=== PATIENT | female | born 1985 | race Caucasian/White ===

== ENCOUNTER 2019-03-17 09:24 | Emergency (ER) | payer MEDICAID ==
--- NOTE | 2019-03-17 09:55 | EDM.PDOC ---
ED HPI GENERAL MEDICAL PROBLEM - General Chief Complaint: Flank Pain Stated Complaint: PAIN IN LT SIDE Time Seen by Provider: 03/17/19 09:55 Source of Information: Reports: Patient - History of Present Illness INITIAL COMMENTS - FREE TEXT/NARRATIVE: HISTORY AND PHYSICAL: History of present illness: [Patient with history of left renal stone presents with abrupt onset left flank pain awoke her from sleep at 3 AM rates 5 out of 10 nonradiating no fever nausea vomiting chills sweats No apparent distress no pain behavior Recent menstruation ] Review of systems: As per history of present illness and below otherwise all systems reviewed and negative. Past medical history: As per history of present illness and as reviewed below otherwise noncontributory. Surgical history: As per history of present illness and as reviewed below otherwise noncontributory. Social history: No reported history of drug or alcohol abuse. Family history: As per history of present illness and as reviewed below otherwise noncontributory. Physical exam: HEENT: Atraumatic, normocephalic, pupils reactive, negative for conjunctival pallor or scleral icterus, mucous membranes moist, throat clear, neck supple, nontender, trachea midline. Lungs: Clear to auscultation, breath sounds equal bilaterally, chest nontender. Heart: S1S2, regular, negative for clicks, rubs, or JVD. Abdomen: Soft, nondistended, nontende and right, tender on deep palpation on the left. Negative for masses or hepatosplenomegaly. Negative for costovertebral tenderness. Pelvis: Stable nontender. Genitourinary: Deferred. Rectal: Deferred. Extremities: Atraumatic, negative for cords or calf pain. Neurovascular unremarkable. Neuro: Awake, alert, oriented. Cranial nerves II through XII unremarkable. Cerebellum unremarkable. Motor and sensory unremarkable throughout. Exam nonfocal. Diagnostics: [cBC CMP troponin lipase UA ]DT abdomen pelvis without contrast Therapeutics: [Saline Toradol Zofran Toradol ] Impression: [ left sided abdominal pain ] Definitive disposition and diagnosis as appropriate pending reevaluation and review of above. left flank Pain Score (Numeric/FACES): 9 - Related Data Allergies Allergy/AdvReac Type Severity Reaction Status Date / Time Penicillins Allergy Mild Cannot Verified 03/17/19 09:33 Remember hydrocodone Allergy Rash Verified 03/17/19 09:33 Home Meds: Home Meds . 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: Musculoskeletal History: Reports: None Neurological History: Reports: None Psychiatric History: Reports: None Endocrine/Metabolic History: Reports: None Hematologic History: Reports: None Immunologic History: Reports: None Oncologic (Cancer) History: Reports: None Dermatologic History: Reports: None - Infectious Disease History Infectious Disease History: Reports: C-Difficile - Past Surgical History Head Surgeries/Procedures: Reports: None HEENT Surgical History: Reports: None Cardiovascular Surgical History: Reports: None Respiratory Surgical History: Reports: None GI Surgical History: Reports: None Female Surgical History: Reports: Section Endocrine Surgical History: Reports: None Neurological Surgical History: Reports: None Musculoskeletal Surgical History: Reports: None Oncologic Surgical History: Reports: None Dermatological Surgical History: Reports: None Social & Family History - Family History Family Medical History: Noncontributory - Tobacco Use Smoking Status *Q: Never Smoker Second Hand Smoke Exposure: No - Caffeine Use Caffeine Use: Reports: Coffee, Energy Drinks, Soda - Recreational Drug Use Recreational Drug Use: No ED ROS GENERAL - Review of Systems Review Of Systems: See Below ED EXAM, GENERAL - Physical Exam Exam: See Below Course - Vital Signs Last Recorded V/S: Last Vital Signs Temp 96.1 F 03/17/19 09:31 Pulse 66 03/17/19 09:31 Resp 18 03/17/19 09:31 BP 135/50 L 03/17/19 09:31 Pulse Ox 99 03/17/19 09:31 - Orders/Labs/Meds Labs: Laboratory Tests 03/17/19 03/17/19 03/17/19 Range/Units 09:35 09:35 09:51 WBC 5.20 (4.0-11.0) K/uL RBC 4.40 (4.30-5.90) M/uL Hgb 12.6 (12.0-16.0) g/dL Hct 39.9 (36.0-46.0) % MCV 90.7 (80.0-98.0) fL MCH 28.6 (27.0-32.0) pg MCHC 31.6 (31.0-37.0) g/dL RDW Std Deviation 50.3 (28.0-62.0) fl RDW Coeff of Manuel 15 (11.0-15.0) % Plt Count 213 (150-400) K/uL MPV 11.50 (7.40-12.00) fL Neut % (Auto) 61.3 (48.0-80.0) % Lymph % (Auto) 31.0 (16.0-40.0) % [place] % (Auto) 4.4 (0.0-15.0) % Eos % (Auto) 2.5 (0.0-7.0) % Baso % (Auto) 0.8 (0.0-1.5) % Neut # (Auto) 3.2 (1.4-5.7) K/uL Lymph # (Auto) 1.6 (0.6-2.4) K/uL [place] # (Auto) 0.2 (0.0-0.8) K/uL Eos # (Auto) 0.1 (0.0-0.7) K/uL Baso # (Auto) 0.0 (0.0-0.1) K/uL Nucleated RBC % 0.0 /100WBC Nucleated RBCs # 0 K/uL Sodium (136-145) mmol/L Potassium (3.5-5.1) mmol/L Chloride (98-107) mmol/L Carbon Dioxide (21.0-32.0) mmol/L BUN (7.0-18.0) mg/dL Creatinine (0.6-1.0) mg/dL Est Cr Clr Drug Dosing mL/min Estimated GFR (MDRD) ml/min Glucose (74-106) mg/dL Calcium (8.5-10.1) mg/dL Total Bilirubin (0.2-1.0) mg/dL AST (15-37) IU/L ALT (14-63) IU/L Alkaline Phosphatase (46-116) U/L Troponin I (0.000-0.056) ng/mL Total Protein (6.4-8.2) g/dL Albumin (3.4-5.0) g/dL Globulin (2.6-4.0) g/dL Albumin/Globulin Ratio (0.9-1.6) Lipase (73-393) U/L Urine Color YELLOW Urine Appearance SLT CLOUDY Urine pH 5.5 (5.0-8.0) Ur Specific [place] 1.025 (1.001-1.035) Urine Protein NEGATIVE (NEGATIVE) mg/dL Urine Glucose (UA) NEGATIVE (NEGATIVE) mg/dL Urine Ketones NEGATIVE (NEGATIVE) mg/dL Urine Occult Blood TRACE-INTACT H (NEGATIVE) Urine Nitrite NEGATIVE (NEGATIVE) Urine Bilirubin NEGATIVE (NEGATIVE) Urine Urobilinogen 0.2 (<2.0) EU/dL Ur Leukocyte Esterase NEGATIVE (NEGATIVE) Urine RBC 0-2 (0-2/HPF) Urine WBC 0-2 (0-5/HPF) Ur Epithelial Cells MODERATE (NONE-FEW) Urine Bacteria FEW (NEGATIVE) Urine Mucus LIGHT (NONE-MOD) Urine HCG, Qual NEGATIVE (NEGATIVE) 03/17/19 Range/Units 09:51 WBC (4.0-11.0) K/uL RBC (4.30-5.90) M/uL Hgb (12.0-16.0) g/dL Hct (36.0-46.0) % MCV (80.0-98.0) fL MCH (27.0-32.0) pg MCHC (31.0-37.0) g/dL RDW Std Deviation (28.0-62.0) fl RDW Coeff of Manuel (11.0-15.0) % Plt Count (150-400) K/uL MPV (7.40-12.00) fL Neut % (Auto) (48.0-80.0) % Lymph % (Auto) (16.0-40.0) % [place] % (Auto) (0.0-15.0) % Eos % (Auto) (0.0-7.0) % Baso % (Auto) (0.0-1.5) % Neut # (Auto) (1.4-5.7) K/uL Lymph # (Auto) (0.6-2.4) K/uL [place] # (Auto) (0.0-0.8) K/uL Eos # (Auto) (0.0-0.7) K/uL Baso # (Auto) (0.0-0.1) K/uL Nucleated RBC % /100WBC Nucleated RBCs # K/uL Sodium 143 (136-145) mmol/L Potassium 3.8 (3.5-5.1) mmol/L Chloride 107 (98-107) mmol/L Carbon Dioxide 25.8 (21.0-32.0) mmol/L BUN 7 (7.0-18.0) mg/dL Creatinine 0.7 (0.6-1.0) mg/dL Est Cr Clr Drug Dosing 121.30 mL/min Estimated GFR (MDRD) > 60.0 ml/min Glucose 95 (74-106) mg/dL Calcium 9.0 (8.5-10.1) mg/dL Total Bilirubin 0.4 (0.2-1.0) mg/dL AST 14 L (15-37) IU/L ALT 26 (14-63) IU/L Alkaline Phosphatase 61 (46-116) U/L Troponin I < 0.050 (0.000-0.056) ng/mL Total Protein 7.2 (6.4-8.2) g/dL Albumin 3.8 (3.4-5.0) g/dL Globulin 3.4 (2.6-4.0) g/dL Albumin/Globulin Ratio 1.1 (0.9-1.6) Lipase 68 L (73-393) U/L Urine Color Urine Appearance Urine pH (5.0-8.0) Ur Specific [place] (1.001-1.035) Urine Protein (NEGATIVE) mg/dL Urine Glucose (UA) (NEGATIVE) mg/dL Urine Ketones (NEGATIVE) mg/dL Urine Occult Blood (NEGATIVE) Urine Nitrite (NEGATIVE) Urine Bilirubin (NEGATIVE) Urine Urobilinogen (<2.0) EU/dL Ur Leukocyte Esterase (NEGATIVE) Urine RBC (0-2/HPF) Urine WBC (0-5/HPF) Ur Epithelial Cells (NONE-FEW) Urine Bacteria (NEGATIVE) Urine Mucus (NONE-MOD) Urine HCG, Qual (NEGATIVE) Meds: Medications Discontinued Medications Generic Name Dose Route Start Last Admin Trade Name Freq PRN Reason Stop Dose Admin Sodium Chloride 1,000 mls @ 999 mls/hr 03/17/19 09:42 03/17/19 09:56 Normal Saline IV 03/17/19 10:42 999 mls/hr STAT ONE Administration Ketorolac Tromethamine 30 mg 03/17/19 09:42 03/17/19 10:00 Toradol IVPUSH 03/17/19 09:43 30 mg ONETIME ONE Administration Ondansetron HCl 8 mg 03/17/19 09:42 03/17/19 09:57 Zofran IVPUSH 03/17/19 09:43 8 mg ONETIME ONE Administration Departure - Departure Time of Disposition: 11:38 Disposition: Home, Self-Care 01 Condition: Good Clinical Impression: Abdominal pain - Discharge Information Referrals: Kashmir Abernathy MD [Primary Care Provider] - Forms: ED Department Discharge Additional Instructions: The following information is given to patients seen in the emergency department who are being discharged to home. This information is to outline your options for follow-up care. We provide all patients seen in our emergency department with a follow-up referral. The need for follow-up, as well as the timing and circumstances, are variable depending upon the specifics of your emergency department visit. If you don't have a primary care physician on staff, we will provide you with a referral. We always advise you to contact your personal physician following an emergency department visit to inform them of the circumstance of the visit and for follow-up with them and/or the need for any referrals to a consulting specialist. The emergency department will also refer you to a specialist when appropriate. This referral assures that you have the opportunity for follow-up care with a specialist. All of these measure are taken in an effort to provide you with optimal care, which includes your follow-up. Under all circumstances we always encourage you to contact your private physician who remains a resource for coordinating your care. When calling for follow-up care, please make the office aware that this follow-up is from your recent emergency room visit. If for any reason you are refused follow-up, please contact the [facility] emergency department at and asked to speak to the emergency department charge nurse.
[2019-03-17] MEDS: Sodium Chloride 0.9% 1,000 ML IV ONE (09:56)
[2019-03-17] MEDS: Ondansetron 4 MG/2 ML SDV IVPUSH ONE (09:57)
[2019-03-17] MEDS: Ketorolac 30 MG/ML SDV IVPUSH ONE (10:00)
[2019-03-17 11:13] LABS: CHLORIDE,CL 107 mmol/L (98-107)
[2019-03-17 11:15] LABS: SODIUM,NA 143 mmol/L (136-145)
--- NOTE | 2019-03-17 11:15 | CT ---
CT of the abdomen and pelvis without contrast. HISTORY: Pain TECHNIQUE: Axial CT images were obtained of the abdomen and pelvis without contrast. Coronal and sagittal reconstructions obtained. COMPARISON: 01/01/2019, 05/24/2009. FINDINGS: The lung bases are clear, no pleural effusion. There is a 13 mm hypodensity within the lower right hepatic lobe, unchanged from prior CTs. The spleen, adrenal glands, and pancreas appear unremarkable for noncontrast examination. The gallbladder appears normal. There is no bulky retroperitoneal lymphadenopathy. No abdominal ascites. Minimal fat-containing periumbilical hernia. Small nonobstructing nephrolithiasis. The large and small bowel are normal in caliber without evidence of obstruction. The appendix appears normal. There is no bulky pelvic lymphadenopathy. No free fluid. No free air. The urinary bladder appears normal. The visualized osseous structures appear normal. IMPRESSION: 1. No acute findings within the abdomen or pelvis. 2. Nonobstructing nephrolithiasis. 3. Stable, technically benign, tiny hypodensity within the lower right hepatic lobe.
== END 2019-03-17 11:51 | disposition home or self-care (01) ==
LOC: MW.ED 09:24
DX: R10.9 Unspecified abdominal pain (principal); Z88.0 Allergy status to penicillin; Z88.5 Allergy status to narcotic agent
CPT/HCPCS: 36415; 74176; 80053; 81001; 81025; 83690; 84484; 85025; 96361; 96374; 96375; 99284; J1885; J2405; J7040; 99283

== ENCOUNTER 2019-04-16 09:28 | Observation (INO) | payer MEDICAID ==
--- NOTE | 2019-04-16 09:50 | EDM.PDOC ---
ED HPI GENERAL MEDICAL PROBLEM - General Chief Complaint: Respiratory Problem Stated Complaint: CANT BREATH Time Seen by Provider: 04/16/19 09:36 - History of Present Illness INITIAL COMMENTS - FREE TEXT/NARRATIVE: HISTORY AND PHYSICAL: History of present illness: Patient is a 33-year-old white female who presents with a concern of pain while breathing. She denies fever chills nausea vomiting denies history of DVT or PE denies oral contraceptives and eyes history of cancer denies trauma. Review of systems: As per history of present illness and below otherwise all systems reviewed and negative. Past medical history: As per history of present illness and as reviewed below otherwise noncontributory. Surgical history: As per history of present illness and as reviewed below otherwise noncontributory. Social history: No reported history of drug or alcohol abuse. Family history: As per history of present illness and as reviewed below otherwise noncontributory. Physical exam: HEENT: Atraumatic, normocephalic, pupils reactive, negative for conjunctival pallor or scleral icterus, mucous membranes moist, throat clear, neck supple, nontender, trachea midline. Lungs: Clear to auscultation, breath sounds equal bilaterally, chest nontender. Heart: S1S2, regular, negative for clicks, rubs, or JVD. Abdomen: Soft, nondistended, nontender. Negative for masses or hepatosplenomegaly. Negative for costovertebral tenderness. Pelvis: Stable nontender. Genitourinary: Deferred. Rectal: Deferred. Extremities: Atraumatic, negative for cords or calf pain. Neurovascular unremarkable. Neuro: Awake, alert, oriented. Cranial nerves II through XII unremarkable. Cerebellum unremarkable. Motor and sensory unremarkable throughout. Exam nonfocal. Diagnostics: CBC CMP troponin d-dimer chest x-ray EKG Therapeutics: IV O2 monitor aspirin 324 mg by mouth Impression: ##1 atypical chest pain #2 pleurisy #3 elevated troponin Definitive disposition and diagnosis as appropriate pending reevaluation and review of above. Bilateral Ribns Pain Score (Numeric/FACES): 5 - Related Data Allergies Allergy/AdvReac Type Severity Reaction Status Date / Time Penicillins Allergy Mild Cannot Verified 04/16/19 09:32 Remember hydrocodone Allergy Rash Verified 04/16/19 09:32 Home Meds: Home Meds . 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: Musculoskeletal History: Reports: None Neurological History: Reports: None Psychiatric History: Reports: None Endocrine/Metabolic History: Reports: None Hematologic History: Reports: None Immunologic History: Reports: None Oncologic (Cancer) History: Reports: None Dermatologic History: Reports: None - Infectious Disease History Infectious Disease History: Reports: None - Past Surgical History Head Surgeries/Procedures: Reports: None HEENT Surgical History: Reports: None Cardiovascular Surgical History: Reports: None Respiratory Surgical History: Reports: None GI Surgical History: Reports: None Female Surgical History: Reports: Section Endocrine Surgical History: Reports: None Neurological Surgical History: Reports: None Musculoskeletal Surgical History: Reports: None Oncologic Surgical History: Reports: None Dermatological Surgical History: Reports: None Social & Family History - Family History Family Medical History: Noncontributory - Tobacco Use Smoking Status *Q: Former Smoker Used Tobacco, but Quit: Yes Month/Year Tobacco Last Used: 2012 - Caffeine Use Caffeine Use: Reports: Coffee - Recreational Drug Use Recreational Drug Use: No ED ROS GENERAL - Review of Systems Review Of Systems: ROS reveals no pertinent complaints other than HPI. ED EXAM, GENERAL - Physical Exam Exam: See Below (See dictation) Course - Vital Signs Last Recorded V/S: Last Vital Signs Temp 36.2 C 04/16/19 09:33 Pulse 80 04/16/19 10:50 Resp 15 04/16/19 10:50 BP 132/69 04/16/19 10:50 Pulse Ox 100 04/16/19 10:50 - Orders/Labs/Meds Orders: Active Orders 24 hr Category Date Time Status EKG Documentation Completion [RC] STAT Care 04/16/19 09:42 Active Pulse Oximetry [RC] ASDIRECTED Care 04/16/19 09:42 Active Labs: Laboratory Tests 04/16/19 04/16/19 04/16/19 Range/Units 09:56 09:56 09:56 WBC 5.41 (4.0-11.0) K/uL RBC 4.27 L (4.30-5.90) M/uL Hgb 12.2 (12.0-16.0) g/dL Hct 39.2 (36.0-46.0) % MCV 91.8 (80.0-98.0) fL MCH 28.6 (27.0-32.0) pg MCHC 31.1 (31.0-37.0) g/dL RDW Std Deviation 51.1 (28.0-62.0) fl RDW Coeff of Manuel 15 (11.0-15.0) % Plt Count 189 (150-400) K/uL MPV 11.40 (7.40-12.00) fL Neut % (Auto) 57.8 (48.0-80.0) % Lymph % (Auto) 34.8 (16.0-40.0) % [place] % (Auto) 3.7 (0.0-15.0) % Eos % (Auto) 3.1 (0.0-7.0) % Baso % (Auto) 0.6 (0.0-1.5) % Neut # (Auto) 3.1 (1.4-5.7) K/uL Lymph # (Auto) 1.9 (0.6-2.4) K/uL [place] # (Auto) 0.2 (0.0-0.8) K/uL Eos # (Auto) 0.2 (0.0-0.7) K/uL Baso # (Auto) 0.0 (0.0-0.1) K/uL Nucleated RBC % 0.0 /100WBC Nucleated RBCs # 0 K/uL D-Dimer, Quantitative 0.54 H (0.0-0.50) mg/L FEU Sodium 143 (136-145) mmol/L Potassium 4.3 (3.5-5.1) mmol/L Chloride 108 H (98-107) mmol/L Carbon Dioxide 26.6 (21.0-32.0) mmol/L BUN 11 (7.0-18.0) mg/dL Creatinine 0.6 (0.6-1.0) mg/dL Est Cr Clr Drug Dosing 141.52 mL/min Estimated GFR (MDRD) > 60.0 ml/min Glucose 89 (74-106) mg/dL Calcium 8.8 (8.5-10.1) mg/dL Total Bilirubin 0.3 (0.2-1.0) mg/dL AST 12 L (15-37) IU/L ALT 21 (14-63) IU/L Alkaline Phosphatase 66 (46-116) U/L Troponin I 0.156 H* (0.000-0.056) ng/mL Total Protein 6.8 (6.4-8.2) g/dL Albumin 3.4 (3.4-5.0) g/dL Globulin 3.4 (2.6-4.0) g/dL Albumin/Globulin Ratio 1.0 (0.9-1.6) Urine Color Urine Appearance Urine pH (5.0-8.0) Ur Specific [place] (1.001-1.035) Urine Protein (NEGATIVE) mg/dL Urine Glucose (UA) (NEGATIVE) mg/dL Urine Ketones (NEGATIVE) mg/dL Urine Occult Blood (NEGATIVE) Urine Nitrite (NEGATIVE) Urine Bilirubin (NEGATIVE) Urine Urobilinogen (<2.0) EU/dL Ur Leukocyte Esterase (NEGATIVE) 04/16/19 Range/Units 11:20 WBC (4.0-11.0) K/uL RBC (4.30-5.90) M/uL Hgb (12.0-16.0) g/dL Hct (36.0-46.0) % MCV (80.0-98.0) fL MCH (27.0-32.0) pg MCHC (31.0-37.0) g/dL RDW Std Deviation (28.0-62.0) fl RDW Coeff of Manuel (11.0-15.0) % Plt Count (150-400) K/uL MPV (7.40-12.00) fL Neut % (Auto) (48.0-80.0) % Lymph % (Auto) (16.0-40.0) % [place] % (Auto) (0.0-15.0) % Eos % (Auto) (0.0-7.0) % Baso % (Auto) (0.0-1.5) % Neut # (Auto) (1.4-5.7) K/uL Lymph # (Auto) (0.6-2.4) K/uL [place] # (Auto) (0.0-0.8) K/uL Eos # (Auto) (0.0-0.7) K/uL Baso # (Auto) (0.0-0.1) K/uL Nucleated RBC % /100WBC Nucleated RBCs # K/uL D-Dimer, Quantitative (0.0-0.50) mg/L FEU Sodium (136-145) mmol/L Potassium (3.5-5.1) mmol/L Chloride (98-107) mmol/L Carbon Dioxide (21.0-32.0) mmol/L BUN (7.0-18.0) mg/dL Creatinine (0.6-1.0) mg/dL Est Cr Clr Drug Dosing mL/min Estimated GFR (MDRD) ml/min Glucose (74-106) mg/dL Calcium (8.5-10.1) mg/dL Total Bilirubin (0.2-1.0) mg/dL AST (15-37) IU/L ALT (14-63) IU/L Alkaline Phosphatase (46-116) U/L Troponin I (0.000-0.056) ng/mL Total Protein (6.4-8.2) g/dL Albumin (3.4-5.0) g/dL Globulin (2.6-4.0) g/dL Albumin/Globulin Ratio (0.9-1.6) Urine Color YELLOW Urine Appearance CLEAR Urine pH 7.0 (5.0-8.0) Ur Specific [place] 1.010 (1.001-1.035) Urine Protein NEGATIVE (NEGATIVE) mg/dL Urine Glucose (UA) NEGATIVE (NEGATIVE) mg/dL Urine Ketones NEGATIVE (NEGATIVE) mg/dL Urine Occult Blood NEGATIVE (NEGATIVE) Urine Nitrite NEGATIVE (NEGATIVE) Urine Bilirubin NEGATIVE (NEGATIVE) Urine Urobilinogen 0.2 (<2.0) EU/dL Ur Leukocyte Esterase NEGATIVE (NEGATIVE) Meds: Medications Discontinued Medications Generic Name Dose Route Start Last Admin Trade Name Freq PRN Reason Stop Dose Admin Iopamidol 60 ml 04/16/19 11:12 04/16/19 11:13 Isovue Multipack-370 (76%) IVPUSH 04/16/19 11:13 60 ml ONETIME ONE Administration Departure - Departure Time of Disposition: 09:50 Disposition: Refer to Observation Condition: Good Clinical Impression: Pleurisy, Atypical chest pain, Elevated troponin - Discharge Information Referrals: PCP,Unknown [Primary Care Provider] - Forms: ED Department Discharge - My Orders Last 24 Hours: My Active Orders 04/16/19 09:42 EKG Documentation Completion [RC] STAT Pulse Oximetry [RC] ASDIRECTED - Assessment/Plan Last 24 Hours: My Active Orders 04/16/19 09:42 EKG Documentation Completion [RC] STAT Pulse Oximetry [RC] ASDIRECTED
[2019-04-16 10:37] LABS: CHLORIDE,CL 108 mmol/L (98-107); SODIUM,NA 143 mmol/L (136-145)
--- NOTE | 2019-04-16 10:39 | CR ---
EXAMINATION: Portable chest radiograph. HISTORY: Shortness of breath. FINDINGS: The trachea is midline. The cardiomediastinal silhouette is within normal limits. No pulmonary infiltrates, effusions or pneumothorax. Osseous structures appear unremarkable. IMPRESSION: No acute cardiopulmonary process.
[2019-04-16] MEDS ORDERED: Iopamidol 755 MG/ML 200 ML Multipack Bottle IVPUSH ONE (11:12)
--- NOTE | 2019-04-16 11:42 | CT ---
EXAMINATION: CTA chest HISTORY: Chest pain COMPARISON: Radiographs from the same day TECHNIQUE: Axial CT imaging obtained through the chest following the administration of 60 mL of Isovue-370 the right antecubital fossa. Coronal and sagittal reconstructions obtained. FINDINGS: The lungs are clear without focal consolidation. No pleural effusion or pneumothorax. Mild dependent atelectasis. The heart is normal in size without pericardial effusion. The thoracic aorta is normal in caliber. Mild soft tissue within the anterior mediastinum, likely residual thymus. No mediastinal, hilar, or axillary lymphadenopathy. Central airways are clear. Pulmonary arteries appear patent without evidence of pulmonary embolism. Thoracic aorta is normal in caliber. Visualized osseous structures appear normal. IMPRESSION: No acute cardiopulmonary findings.
[2019-04-16] MEDS ORDERED: Aspirin 325 MG Tab PO ONE (11:55)
[2019-04-16] MEDS ORDERED: Sodium Chloride 0.9% 2.5 ML Syringe FLUSH PRN (13:02)
[2019-04-16] MEDS ORDERED: Acetaminophen 325 MG Tab PO PRN (13:02)
[2019-04-16] MEDS ORDERED: Sodium Chloride 0.9% 10 ML Syringe FLUSH PRN (13:02)
[2019-04-16] MEDS ORDERED: Temazepam 15 MG Cap PO PRN (13:02)
[2019-04-16] MEDS ORDERED: Sodium Chloride 0.9% 10 ML SDV IV PRN (13:02)
[2019-04-16] MEDS ORDERED: Docusate Sodium 100 MG Cap PO PRN (13:02)
[2019-04-16] MEDS ORDERED: Enoxaparin 30 MG/0.3 ML Syringe SUBCUT SCH (13:15)
--- NOTE | 2019-04-16 13:59 | PCM.HP ---
H&P History of Present Illness - General Date of Service: 04/16/19 Admit Problem/Dx: Admission Diagnosis/Problem Admission Diagnosis/Problem Elevated troponin level Source of Information: Patient History Limitations: Reports: No Limitations - History of Present Illness Initial Comments - Free Text/Narative: The patient is an otherwise healthy 33-year-old lady who had been admitted to observation out of pleuritic-type chest pain. Patient had described the chest pain as hurting when she took a deep breath. She also had described pain along the lower right side of her chest. Initial EKG obtained was normal and showed no T-wave abnormalities. The patient has no risk factors. She does not take any medications chronically. She has been otherwise healthy. The patient also denied any diaphoresis with episode of chest pain. She had some nausea. The patient had a single troponin initially which is noted to be at 0.156 and is retested at 1.451. She did have a d-dimer that was elevated minimally at 0.[address] scan of her chest was obtained which did not show any evidence of pulmonary emboli. The patient has been stable without chest pain and a repeat EKG has shown no changes from her previous one. So normal EKG with a ventricular rate of 65 bpm GA interval of 175 ms, QT interval of 431 ms with no T-wave abnormalities. The patient will be transferred to emergency room in [place] with [facility] for NSTEMI and acute coronary syndrome. Dr. Damian, emergency room physician is accepting. The patient is hemodynamically stable and is appropriate for ground transportation. Onset of Symptoms: Reports: Sudden Duration of Symptoms: Reports: Hour(s):, Improving Location: Reports: Chest Quality: Reports: Ache, Stabbing Severity: Mild Improves with: Reports: Rest Worsens with: Reports: Breathing Context: Denies: Sick Contact Associated Symptoms: Reports: No Other Symptoms Bilateral Ribns Pain Score (Numeric/FACES): 5 - Related Data Allergies/Adverse Reactions: Allergies Allergy/AdvReac Type Severity Reaction Status Date / Time Penicillins Allergy Mild Cannot Verified 04/16/19 09:32 Remember hydrocodone Allergy Rash Verified 04/16/19 09:32 Home Medications: Home Meds . 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: Musculoskeletal History: Reports: None Neurological History: Reports: None Psychiatric History: Reports: None Endocrine/Metabolic History: Reports: None Hematologic History: Reports: None Immunologic History: Reports: None Oncologic (Cancer) History: Reports: None Dermatologic History: Reports: None - Infectious Disease History Infectious Disease History: Reports: None - Past Surgical History Head Surgeries/Procedures: Reports: None HEENT Surgical History: Reports: None Cardiovascular Surgical History: Reports: None Respiratory Surgical History: Reports: None GI Surgical History: Reports: None Female Surgical History: Reports: Section Endocrine Surgical History: Reports: None Neurological Surgical History: Reports: None Musculoskeletal Surgical History: Reports: None Oncologic Surgical History: Reports: None Dermatological Surgical History: Reports: None Social & Family History - Family History Family Medical History: Noncontributory Other Cardiac Family History: Grandmother had HTN and grandfather had multiple strokes - Tobacco Use Smoking Status *Q: Former Smoker Used Tobacco, but Quit: Yes Month/Year Tobacco Last Used: 2012 Second Hand Smoke Exposure: No - Caffeine Use Caffeine Use: Reports: Coffee, Energy Drinks - Alcohol Use Days Per Week of Alcohol Use: 1 Number of Drinks Per Day: 0 Total Drinks Per Week: 0 - Recreational Drug Use Recreational Drug Use: No - Living Situation & Occupation Living situation: Reports: , with Significant Other Occupation: Employed H&P Review of Systems - Review of Systems: Review Of Systems: See Below General: Reports: No Symptoms HEENT: Reports: No Symptoms Pulmonary: Reports: No Symptoms Cardiovascular: Reports: Chest Pain Gastrointestinal: Reports: No Symptoms Genitourinary: Reports: No Symptoms Musculoskeletal: Reports: No Symptoms Skin: Reports: No Symptoms Psychiatric: Reports: No Symptoms Neurological: Reports: No Symptoms Hematologic/Lymphatic: Reports: No Symptoms Immunologic: Reports: No Symptoms Exam - Exam Exam: See Below - Vital Signs Vital Signs: Last Vital Signs Temp 36.2 C 04/16/19 09:33 Pulse 68 04/16/19 12:03 Resp 12 04/16/19 12:03 BP 134/69 04/16/19 12:03 Pulse Ox 100 04/16/19 12:03 Weight: 135.397 kg - Exam Quality Assessment: No: Supplemental Oxygen General: Alert (Morbidly obese), Oriented, Cooperative HEENT: Conjunctiva Clear, EACs Clear, Mucosa Moist & Sage, Pupils Equal, PERRLA Neck: Supple, Trachea Midline Lungs: Clear to Auscultation, Normal Respiratory Effort Cardiovascular: Regular Rate, Regular Rhythm, Normal S1, Normal S2 GI/Abdominal Exam: Normal Bowel Sounds, Soft, Non-Tender, No Distention Back Exam: Normal Inspection, Full Range of Motion Extremities: Normal Inspection, No Pedal Edema Skin: Warm, Dry, Intact Neurological: Cranial Nerves Intact Neuro Extensive - Mental Status: Alert, Oriented x3 Psychiatric: Alert, Normal Affect, Normal Mood - Patient Data Lab Results Last 24 hrs: Laboratory Results - last 24 hr 04/16/19 04/16/19 04/16/19 Range/Units 09:56 09:56 09:56 WBC 5.41 (4.0-11.0) K/uL RBC 4.27 L (4.30-5.90) M/uL Hgb 12.2 (12.0-16.0) g/dL Hct 39.2 (36.0-46.0) % MCV 91.8 (80.0-98.0) fL MCH 28.6 (27.0-32.0) pg MCHC 31.1 (31.0-37.0) g/dL RDW Std Deviation 51.1 (28.0-62.0) fl RDW Coeff of Manuel 15 (11.0-15.0) % Plt Count 189 (150-400) K/uL MPV 11.40 (7.40-12.00) fL Neut % (Auto) 57.8 (48.0-80.0) % Lymph % (Auto) 34.8 (16.0-40.0) % [place] % (Auto) 3.7 (0.0-15.0) % Eos % (Auto) 3.1 (0.0-7.0) % Baso % (Auto) 0.6 (0.0-1.5) % Neut # (Auto) 3.1 (1.4-5.7) K/uL Lymph # (Auto) 1.9 (0.6-2.4) K/uL [place] # (Auto) 0.2 (0.0-0.8) K/uL Eos # (Auto) 0.2 (0.0-0.7) K/uL Baso # (Auto) 0.0 (0.0-0.1) K/uL Nucleated RBC % 0.0 /100WBC Nucleated RBCs # 0 K/uL D-Dimer, Quantitative 0.54 H (0.0-0.50) mg/L FEU Sodium 143 (136-145) mmol/L Potassium 4.3 (3.5-5.1) mmol/L Chloride 108 H (98-107) mmol/L Carbon Dioxide 26.6 (21.0-32.0) mmol/L BUN 11 (7.0-18.0) mg/dL Creatinine 0.6 (0.6-1.0) mg/dL Est Cr Clr Drug Dosing 141.52 mL/min Estimated GFR (MDRD) > 60.0 ml/min Glucose 89 (74-106) mg/dL Calcium 8.8 (8.5-10.1) mg/dL Total Bilirubin 0.3 (0.2-1.0) mg/dL AST 12 L (15-37) IU/L ALT 21 (14-63) IU/L Alkaline Phosphatase 66 (46-116) U/L Troponin I 0.156 H* (0.000-0.056) ng/mL Total Protein 6.8 (6.4-8.2) g/dL Albumin 3.4 (3.4-5.0) g/dL Globulin 3.4 (2.6-4.0) g/dL Albumin/Globulin Ratio 1.0 (0.9-1.6) Urine Color Urine Appearance Urine pH (5.0-8.0) Ur Specific [place] (1.001-1.035) Urine Protein (NEGATIVE) mg/dL Urine Glucose (UA) (NEGATIVE) mg/dL Urine Ketones (NEGATIVE) mg/dL Urine Occult Blood (NEGATIVE) Urine Nitrite (NEGATIVE) Urine Bilirubin (NEGATIVE) Urine Urobilinogen (<2.0) EU/dL Ur Leukocyte Esterase (NEGATIVE) 04/16/19 Range/Units 11:20 WBC (4.0-11.0) K/uL RBC (4.30-5.90) M/uL Hgb (12.0-16.0) g/dL Hct (36.0-46.0) % MCV (80.0-98.0) fL MCH (27.0-32.0) pg MCHC (31.0-37.0) g/dL RDW Std Deviation (28.0-62.0) fl RDW Coeff of Manuel (11.0-15.0) % Plt Count (150-400) K/uL MPV (7.40-12.00) fL Neut % (Auto) (48.0-80.0) % Lymph % (Auto) (16.0-40.0) % [place] % (Auto) (0.0-15.0) % Eos % (Auto) (0.0-7.0) % Baso % (Auto) (0.0-1.5) % Neut # (Auto) (1.4-5.7) K/uL Lymph # (Auto) (0.6-2.4) K/uL [place] # (Auto) (0.0-0.8) K/uL Eos # (Auto) (0.0-0.7) K/uL Baso # (Auto) (0.0-0.1) K/uL Nucleated RBC % /100WBC Nucleated RBCs # K/uL D-Dimer, Quantitative (0.0-0.50) mg/L FEU Sodium (136-145) mmol/L Potassium (3.5-5.1) mmol/L Chloride (98-107) mmol/L Carbon Dioxide (21.0-32.0) mmol/L BUN (7.0-18.0) mg/dL Creatinine (0.6-1.0) mg/dL Est Cr Clr Drug Dosing mL/min Estimated GFR (MDRD) ml/min Glucose (74-106) mg/dL Calcium (8.5-10.1) mg/dL Total Bilirubin (0.2-1.0) mg/dL AST (15-37) IU/L ALT (14-63) IU/L Alkaline Phosphatase (46-116) U/L Troponin I (0.000-0.056) ng/mL Total Protein (6.4-8.2) g/dL Albumin (3.4-5.0) g/dL Globulin (2.6-4.0) g/dL Albumin/Globulin Ratio (0.9-1.6) Urine Color YELLOW Urine Appearance CLEAR Urine pH 7.0 (5.0-8.0) Ur Specific [place] 1.010 (1.001-1.035) Urine Protein NEGATIVE (NEGATIVE) mg/dL Urine Glucose (UA) NEGATIVE (NEGATIVE) mg/dL Urine Ketones NEGATIVE (NEGATIVE) mg/dL Urine Occult Blood NEGATIVE (NEGATIVE) Urine Nitrite NEGATIVE (NEGATIVE) Urine Bilirubin NEGATIVE (NEGATIVE) Urine Urobilinogen 0.2 (<2.0) EU/dL Ur Leukocyte Esterase NEGATIVE (NEGATIVE) Result Diagrams: 04/16/19 09:56 04/16/19 09:56 - Problem List (1) ACS (acute coronary syndrome) SNOMED Code(s): 722947073 ICD Code: I24.9 - ACUTE ISCHEMIC HEART DISEASE, UNSPECIFIED Status: Acute Priority: High Current Visit: Yes (2) Atypical chest pain SNOMED Code(s): 865063111 ICD Code: R07.89 - OTHER CHEST PAIN Status: Acute Current Visit: Yes (3) Elevated troponin SNOMED Code(s): 063677575, 636804417, 391614715 ICD Code: R74.8 - ABNORMAL LEVELS OF OTHER SERUM ENZYMES Status: Acute Current Visit: Yes (4) NSTEMI (non-ST elevation myocardial infarction) SNOMED Code(s): 27241099 ICD Code: I21.4 - NON-ST ELEVATION (NSTEMI) MYOCARDIAL INFARCTION Status: Acute Priority: High Current Visit: Yes (5) Obesity, morbid, BMI 40.0-49.9 SNOMED Code(s): 641607449, 685606087, 21234772806669 ICD Code: E66.01 - MORBID (SEVERE) OBESITY DUE TO EXCESS CALORIES Status: Acute Current Visit: Yes Problem List Initiated/Reviewed/Updated: Yes Orders Last 24hrs: Active Orders 24 hr Category Date Time Status Patient Status [ADT] Stat ADT 04/16/19 11:55 Active Cardiac Monitoring [RC] CONTINUOUS Care 04/16/19 13:03 Active EKG 12 Lead [EKG Documentation Completion] [RC] STAT Care 04/16/19 12:01 Active EKG Documentation Completion [RC] AM Care 04/17/19 08:00 Active EKG Documentation Completion [RC] STAT Care 04/16/19 09:42 Active Oxygen Therapy [RC] PRN Care 04/16/19 13:02 Active Peripheral IV Care [RC] . DIRECTED Care 04/16/19 13:02 Active Pulse Oximetry [RC] ASDIRECTED Care 04/16/19 09:42 Active Telemetry Monitoring [Cardiac Monitoring] [RC] . Care 04/16/19 12:31 Active DIRECTED Up ad Kay [RC] ASDIRECTED Care 04/16/19 13:02 Active VTE/DVT Education [RC] PER UNIT ROUTINE Care 04/16/19 13:02 Active Vital Signs [RC] Q4H Care 04/16/19 13:02 Active Heart Healthy Diet [DIET] Diet 04/16/19 Dinner Active Echo 2D wo Cont [US] Routine Exams 04/16/19 13:54 Ordered BASIC METABOLIC PANEL,BMP [CHEM] AM Lab 04/17/19 05:11 Ordered CBC WITH AUTO DIFF [HEME] AM Lab 04/17/19 05:11 Ordered TROPONIN I [CHEM] Q6H Lab 04/16/19 13:02 Ordered TROPONIN I [CHEM] Q6H Lab 04/16/19 19:02 Ordered Acetaminophen [Tylenol] Med 04/16/19 13:02 Active 650 mg PO Q4H PRN Docusate Sodium [Colace] Med 04/16/19 13:02 Active 100 mg PO BID PRN Enoxaparin [Lovenox] Med 04/16/19 13:15 Active 30 mg SUBCUT Q24H Sodium Chloride 0.9% [Normal Saline] Med 04/16/19 13:02 Active 10 ml IV ASDIRECTED PRN Sodium Chloride 0.9% [Saline Flush] Med 04/16/19 13:02 Active 10 ml FLUSH ASDIRECTED PRN Sodium Chloride 0.9% [Saline Flush] Med 04/16/19 13:02 Active 2.5 ml FLUSH ASDIRECTED PRN Temazepam [Restoril] Med 04/16/19 13:02 Active 15 mg PO BEDTIME PRN Peripheral IV Insertion Adult [OM.PC] Routine Oth 04/16/19 13:02 Ordered Saline Lock Insert [OM.PC] Routine Oth 04/16/19 13:02 Ordered Resuscitation Status Routine Resus Stat 04/16/19 13:02 Ordered Medication Orders Acetaminophen (Tylenol) 650 mg PO Q4H PRN PRN Reason: Pain (Mild 1-3)/fever Docusate Sodium (Colace) 100 mg PO BID PRN PRN Reason: Constipation Enoxaparin Sodium (Lovenox) 30 mg SUBCUT Q24H BERNARDO Sodium Chloride (Saline Flush) 10 ml FLUSH ASDIRECTED PRN PRN Reason: Keep Vein Open Sodium Chloride (Saline Flush) 2.5 ml FLUSH ASDIRECTED PRN PRN Reason: Keep Vein Open Sodium Chloride (Normal Saline) 10 ml IV ASDIRECTED PRN PRN Reason: IV Use Temazepam (Restoril) 15 mg PO BEDTIME PRN PRN Reason: Sleep Assessment/Plan Comment:: The patient is an otherwise healthy 33-year-old lady who was admitted to observation contrary to pleuritic-type chest pain. The patient initially had an elevated d-dimer and the CT scan did not show any evidence of pulmonary emboli. She also had a minimally elevated troponin at 1.56 and this had elevated to 1. 45. This is indicated that the patient did have cardiac event which requires further investigation. As a result of this the patient had been discharged to acute care facility in order for further evaluation and treatment. I discussed the case with ER physician in [facility], Dr. Damian, who will be accepting. The patient is otherwise hemodynamically stable. She is recommended to continue nothing by mouth for now. The patient is also to have activity as tolerated after possible cardiac intervention. The patient is otherwise stable and she is discharged with recommendation for ambulance transportation to tertiary care center.
--- NOTE | 2019-04-16 15:36 | PCM.DCSUM1 ---
Discharge Summary - Hospital Course Diagnosis: Stroke: No - Discharge Data Discharge Date: 04/16/19 Discharge Disposition: DC/Tfer to Acute Hospital 02 Condition: Good - Discharge Diagnosis/Problem(s) (1) NSTEMI (non-ST elevation myocardial infarction) SNOMED Code(s): 78980804 ICD Code: I21.4 - NON-ST ELEVATION (NSTEMI) MYOCARDIAL INFARCTION Status: Acute Priority: High Current Visit: Yes (2) ACS (acute coronary syndrome) SNOMED Code(s): 974634966 ICD Code: I24.9 - ACUTE ISCHEMIC HEART DISEASE, UNSPECIFIED Status: Acute Priority: High Current Visit: Yes - Patient Summary/Data Hospital Course: The patient is an otherwise healthy 33-year-old lady who had been admitted to observation out of pleuritic-type chest pain. Patient had described the chest pain as hurting when she took a deep breath. She also had described pain along the lower right side of her chest. Initial EKG obtained was normal and showed no T-wave abnormalities. The patient has no risk factors. She does not take any medications chronically. She has been otherwise healthy. The patient also denied any diaphoresis with episode of chest pain. She had some nausea. The patient had a single troponin initially which is noted to be at 0.156 and is retested at 1.451. She did have a d-dimer that was elevated minimally at 0.[address] scan of her chest was obtained which did not show any evidence of pulmonary emboli. The patient has been stable without chest pain and a repeat EKG has shown no changes from her previous one. So normal EKG with a ventricular rate of 65 bpm ID interval of 175 ms, QT interval of 431 ms with no T-wave abnormalities. The patient will be transferred to emergency room in [place] with [facility] for NSTEMI and acute coronary syndrome. Dr. Damian, emergency room physician is accepting. The patient is hemodynamically stable and is appropriate for ground transportation. - Patient Instructions Diet: NPO Activity: As Tolerated - Discharge Plan *PRESCRIPTION DRUG MONITORING PROGRAM REVIEWED*: No *COPY OF PRESCRIPTION DRUG MONITORING REPORT IN PATIENT LALY: No Home Medications: Home Meds . [No Known Home Meds] 01/01/19 [History] Oxygen Therapy Mode: Room Air Patient Handouts: Angiogram, Sgne-to-[id number] Forms: ED Department Discharge Referrals: PCP,Unknown [Primary Care Provider] - - Discharge Summary/Plan Comment DC Time >30 min.: Yes - General Info Date of Service: 04/16/19 Admission Dx/Problem (Free Text: Atypical chest pain, acute coronary syndrome, NSEMI Functional Status: Reports: Pain Controlled - Review of Systems General: Reports: No Symptoms HEENT: Reports: No Symptoms Pulmonary: Reports: No Symptoms Cardiovascular: Reports: No Symptoms Gastrointestinal: Reports: No Symptoms Genitourinary: Reports: No Symptoms Musculoskeletal: Reports: No Symptoms Skin: Reports: No Symptoms Neurological: Reports: No Symptoms Psychiatric: Reports: No Symptoms - Patient Data Vitals - Most Recent: Last Vital Signs Temp 37.0 C 04/16/19 13:02 Pulse 65 04/16/19 13:02 Resp 18 04/16/19 13:02 BP 135/81 04/16/19 13:02 Pulse Ox 100 04/16/19 13:02 Weight - Most Recent: 135.397 kg Lab Results - Last 24 hrs: Laboratory Results - last 24 hr 04/16/19 04/16/19 04/16/19 Range/Units 09:56 09:56 09:56 WBC 5.41 (4.0-11.0) K/uL RBC 4.27 L (4.30-5.90) M/uL Hgb 12.2 (12.0-16.0) g/dL Hct 39.2 (36.0-46.0) % MCV 91.8 (80.0-98.0) fL MCH 28.6 (27.0-32.0) pg MCHC 31.1 (31.0-37.0) g/dL RDW Std Deviation 51.1 (28.0-62.0) fl RDW Coeff of Manuel 15 (11.0-15.0) % Plt Count 189 (150-400) K/uL MPV 11.40 (7.40-12.00) fL Neut % (Auto) 57.8 (48.0-80.0) % Lymph % (Auto) 34.8 (16.0-40.0) % [place] % (Auto) 3.7 (0.0-15.0) % Eos % (Auto) 3.1 (0.0-7.0) % Baso % (Auto) 0.6 (0.0-1.5) % Neut # (Auto) 3.1 (1.4-5.7) K/uL Lymph # (Auto) 1.9 (0.6-2.4) K/uL [place] # (Auto) 0.2 (0.0-0.8) K/uL Eos # (Auto) 0.2 (0.0-0.7) K/uL Baso # (Auto) 0.0 (0.0-0.1) K/uL Nucleated RBC % 0.0 /100WBC Nucleated RBCs # 0 K/uL D-Dimer, Quantitative 0.54 H (0.0-0.50) mg/L FEU Sodium 143 (136-145) mmol/L Potassium 4.3 (3.5-5.1) mmol/L Chloride 108 H (98-107) mmol/L Carbon Dioxide 26.6 (21.0-32.0) mmol/L BUN 11 (7.0-18.0) mg/dL Creatinine 0.6 (0.6-1.0) mg/dL Est Cr Clr Drug Dosing 141.52 mL/min Estimated GFR (MDRD) > 60.0 ml/min Glucose 89 (74-106) mg/dL Calcium 8.8 (8.5-10.1) mg/dL Total Bilirubin 0.3 (0.2-1.0) mg/dL AST 12 L (15-37) IU/L ALT 21 (14-63) IU/L Alkaline Phosphatase 66 (46-116) U/L Troponin I 0.156 H* (0.000-0.056) ng/mL Total Protein 6.8 (6.4-8.2) g/dL Albumin 3.4 (3.4-5.0) g/dL Globulin 3.4 (2.6-4.0) g/dL Albumin/Globulin Ratio 1.0 (0.9-1.6) Urine Color Urine Appearance Urine pH (5.0-8.0) Ur Specific [place] (1.001-1.035) Urine Protein (NEGATIVE) mg/dL Urine Glucose (UA) (NEGATIVE) mg/dL Urine Ketones (NEGATIVE) mg/dL Urine Occult Blood (NEGATIVE) Urine Nitrite (NEGATIVE) Urine Bilirubin (NEGATIVE) Urine Urobilinogen (<2.0) EU/dL Ur Leukocyte Esterase (NEGATIVE) 04/16/19 04/16/19 Range/Units 11:20 13:45 WBC (4.0-11.0) K/uL RBC (4.30-5.90) M/uL Hgb (12.0-16.0) g/dL Hct (36.0-46.0) % MCV (80.0-98.0) fL MCH (27.0-32.0) pg MCHC (31.0-37.0) g/dL RDW Std Deviation (28.0-62.0) fl RDW Coeff of Manuel (11.0-15.0) % Plt Count (150-400) K/uL MPV (7.40-12.00) fL Neut % (Auto) (48.0-80.0) % Lymph % (Auto) (16.0-40.0) % [place] % (Auto) (0.0-15.0) % Eos % (Auto) (0.0-7.0) % Baso % (Auto) (0.0-1.5) % Neut # (Auto) (1.4-5.7) K/uL Lymph # (Auto) (0.6-2.4) K/uL [place] # (Auto) (0.0-0.8) K/uL Eos # (Auto) (0.0-0.7) K/uL Baso # (Auto) (0.0-0.1) K/uL Nucleated RBC % /100WBC Nucleated RBCs # K/uL D-Dimer, Quantitative (0.0-0.50) mg/L FEU Sodium (136-145) mmol/L Potassium (3.5-5.1) mmol/L Chloride (98-107) mmol/L Carbon Dioxide (21.0-32.0) mmol/L BUN (7.0-18.0) mg/dL Creatinine (0.6-1.0) mg/dL Est Cr Clr Drug Dosing mL/min Estimated GFR (MDRD) ml/min Glucose (74-106) mg/dL Calcium (8.5-10.1) mg/dL Total Bilirubin (0.2-1.0) mg/dL AST (15-37) IU/L ALT (14-63) IU/L Alkaline Phosphatase (46-116) U/L Troponin I 1.451 H* (0.000-0.056) ng/mL Total Protein (6.4-8.2) g/dL Albumin (3.4-5.0) g/dL Globulin (2.6-4.0) g/dL Albumin/Globulin Ratio (0.9-1.6) Urine Color YELLOW Urine Appearance CLEAR Urine pH 7.0 (5.0-8.0) Ur Specific [place] 1.010 (1.001-1.035) Urine Protein NEGATIVE (NEGATIVE) mg/dL Urine Glucose (UA) NEGATIVE (NEGATIVE) mg/dL Urine Ketones NEGATIVE (NEGATIVE) mg/dL Urine Occult Blood NEGATIVE (NEGATIVE) Urine Nitrite NEGATIVE (NEGATIVE) Urine Bilirubin NEGATIVE (NEGATIVE) Urine Urobilinogen 0.2 (<2.0) EU/dL Ur Leukocyte Esterase NEGATIVE (NEGATIVE) Med Orders - Current: Current Medications Acetaminophen (Tylenol) 650 mg PO Q4H PRN PRN Reason: Pain (Mild 1-3)/fever Docusate Sodium (Colace) 100 mg PO BID PRN PRN Reason: Constipation Enoxaparin Sodium (Lovenox) 30 mg SUBCUT Q24H BERNARDO Last Admin: 04/16/19 14:27 Dose: 30 mg Sodium Chloride (Saline Flush) 10 ml FLUSH ASDIRECTED PRN PRN Reason: Keep Vein Open Sodium Chloride (Saline Flush) 2.5 ml FLUSH ASDIRECTED PRN PRN Reason: Keep Vein Open Sodium Chloride (Normal Saline) 10 ml IV ASDIRECTED PRN PRN Reason: IV Use Temazepam (Restoril) 15 mg PO BEDTIME PRN PRN Reason: Sleep Discontinued Medications Aspirin (Aspirin) 325 mg PO ONETIME ONE Stop: 04/16/19 11:56 Last Admin: 04/16/19 12:00 Dose: 325 mg Iopamidol (Isovue Multipack-370 (76%)) 60 ml IVPUSH ONETIME ONE Stop: 04/16/19 11:13 Last Admin: 04/16/19 11:13 Dose: 60 ml - Exam Quality Assessment: Denies: Supplemental Oxygen General: Reports: Alert, Oriented, Cooperative, No Acute Distress HEENT: Reports: Pupils Equal, Pupils Reactive, EOMI, Mucous Membr. Moist/[place] Neck: Reports: Supple, Trachea Midline Lungs: Reports: Clear to Auscultation, Normal Respiratory Effort Cardiovascular: Reports: Regular Rate, Regular Rhythm GI/Abdominal Exam: Normal Bowel Sounds, Soft, Non-Tender, No Distention, Other ( Obese) Back Exam: Reports: Normal Inspection, Full Range of Motion Extremities: Normal Inspection, Normal Range of Motion, No Pedal Edema Skin: Reports: Warm, Dry, Intact Neurological: Reports: No New Focal Deficit Psy/Mental Status: Reports: Alert, Normal Affect, Normal Mood
== END 2019-04-16 16:30 ==
LOC: MW.ED 09:28 → MW.MS 12:15
PROVIDERS: ADMIT Internal Medicine; ATTEND Internal Medicine
DX: I21.4 Non-ST elevation (NSTEMI) myocardial infarction (principal); I24.9 Acute ischemic heart disease, unspecified; R07.89 Other chest pain; E66.01 Morbid (severe) obesity due to excess calories; Z68.41 Body mass index [BMI] 40.0-44.9, adult; Z88.0 Allergy status to penicillin; Z88.5 Allergy status to narcotic agent; Z87.891 Personal history of nicotine dependence
CPT/HCPCS: 36415; 71045; 71275; 80053; 81003; 84484; 85025; 85379; 93005; 99285; A9270; J1650; Q9967; 96372; G0378